=== PATIENT | female | born 1960 | race Caucasian/White ===

== ENCOUNTER 2020-07-25 10:29 | Inpatient (IN) | payer OTHER, SELFPAY ==
[2020-07-25] VITALS (21 sets, daily range): BP systolic 96–132; BP diastolic 51–80; PULSE 75–105; RESP 14–26; TEMP 36.9–38.7; O2SAT 90–100; BMI 27.1
--- NOTE | ~2020-07-25 | CT_ITS ---
EXAMINATION: CT abdomen pelvis wo con EXAM DATE: 07/25/2020 11:54 INDICATION: Right flank pain, elevated white blood cell count. TECHNIQUE: Spiral CT of the abdomen and pelvis was performed without contrast. Axial, coronal and sag ittal images were reviewed. The dose-length product (DLP) for this examination was 229.95 mGy-cm. T he exposure was tailored according to patient size (auto mA exposure control), and iterative reconstr uction (ASIR) was used as additional dose reduction technique. Comparison is made to prior examinatio n from 09/14/2005. FINDINGS: There is moderate amount of inflammation surrounding the right kidney, consistent with pyel onephritis. No hydronephrosis or nephrolithiasis. The uterus is not identified and has likely been s urgically resected. The bladder is unremarkable. The liver, spleen, adrenal glands and pancreas are unremarkable. Gallbladder is unremarkable. No biliary obstruction. There is no retroperitoneal or pelvic lymphadenopathy. The appendix is not positively visualized. There is no pericecal inflammatory change to suggest appe ndicitis. The stomach and small bowel are unremarkable. There is expected amount of colonic stool. No free intraperitoneal gas. The heart is normal in size. There are no pericardial or pleural e ffusions. The lung bases are unremarkable. There are no osteoblastic or osteolytic lesions identifi ed. IMPRESSION: 1. Moderate right perinephric fat stranding, probably pyelonephritis. Correlate with urinalysis. Reviewed, dictated and finalized at location B. ING MATCHER AND ASSEMBLER IMPRESSION: 1. Moderate right perinephric fat stranding, probably pyelonephritis. Correlat e with urinalysis.
--- NOTE | ~2020-07-25 | XR_ITS ---
EXAMINATION: XR chest 2V DATE: 07/25/2020 11:18 INDICATION: Fever. TECHNIQUE: Frontal and lateral views of the chest were obtained. COMPARISON: None. FINDINGS: There is mild scarring at the lung apices. No pneumonia, pleural effusion, or pneumothorax. The heart size is normal. Breast implants are noted. IMPRESSION: 1. Mild scarring at the lung apices. Reviewed, dictated and finalized at location A. F COUNSEL
--- NOTE | 2020-07-25 10:34 | ECG_ITS ---
Measurements Intervals [place] Rate: 101 P: 59 NC: 154 QRS: 77 QRSD: 77 T: 26 QT: 322 QTc: 419 Interpretive Statements SINUS TACHYCARDIA LEFT ATRIAL ENLARGEMENT BORDERLINE ECG Electronically Signed On 07-25-2020 11:26:57 ASTRO TECHNICIAN by Delvin Gould D.O.
--- NOTE | 2020-07-25 10:34 | ED.FEMALEGU ---
HPI - Female Genitourinary General Chief complaint: Fever Stated complaint: sent from urgent care- poss kidney infection Time Seen by Provider: 07/25/20 10:33 Source: patient and family Mode of arrival: ambulatory Limitations: no limitations History of Present Illness HPI Narrative: Patient is a 6-year-old female who presents for evaluation of dysuria, frequency, fever and headache. Patient states she has been feeling unwell over the past 48 hours, she initially had dysuria and frequency of urination which then resolved yesterday, but then patient developed fever and lower back pain. Patient denies any gross hematuria. She has had nausea without vomiting. She denies any frontal abdominal pain. She denies history of kidney stones. Patient denies chest pain, cough or shortness of breath. Patient was seen at an urgent care found to have an elevated white count and a urinary tract infection, referred to this facility for further work-up. Related Data Home Medications Medication Instructions Recorded Confirmed cetirizine 10 mg tablet 10 mg PO DAILY 01/08/20 01/08/20 Allergies Allergy/AdvReac Type Severity Reaction Status Date / Time No Known Allergies Allergy Mild Verified 07/25/20 10:39 Review of Systems Review of Systems: Narrative: CONSTITUTIONAL: Reports fever and chills EYES: Denies visual changes, redness, or discharge. ENT: Denies rhinorrhea, congestion, sore throat, or otalgia. CARDIOVASCULAR: Denies chest pain, palpitations, or edema. RESPIRATORY: Denies cough or dyspnea. GASTROINTESTINAL: Denies abdominal pain,nausea without vomiting GENITOURINARY: Reports dysuria and frequency SKIN: Denies rash or itching. MUSCULOSKELETAL: Denies back pain, joint pain, or myalgia. NEUROLOGIC: Reports mild headache without numbness or weakness, denies neck pain PMFSH Past Medical History Medical History (Updated 07/25/20 @ 15:50 by Marilynn Woods MD) Close exposure to COVID-19 virus Cough Surgical History Surgical History (Updated 07/25/20 @ 11:42 by Marilynn Woods MD) History of tonsillectomy Social History Social History Smoking status: Former smoker Second hand tobacco smoke exposure: No Smoking end date: 09/12/07 Alcohol intake: current Gender identity (if verbalized by the patient): Female Exam Narrative: Exam Narrative: GENERAL: Awake, alert, conversant HEAD: Normocephalic, atraumatic. EYES: PERRLA and EOMI. ENT: Nares clear, no rhinorrhea or epistaxis. Mucous membranes moist. NECK: Supple. CHEST: No respiratory distress, breathing even and non labored HEART: Tachycardic rate, sinus rhythm ABDOMEN:Non distended, non tender, mild right flank tenderness EXTREMITIES: Normal range of motion. No edema. SKIN: Warm, dry, no rash. NEURO:No focal deficits. Alert and oriented x3 Course Vital Signs Vital signs: Vital Signs Temperature 37.7 C H 07/25/20 10:34 Pulse Rate 105 H 07/25/20 10:34 Respiratory Rate 26 H 07/25/20 10:34 Blood Pressure 129/80 07/25/20 10:34 Pulse Oximetry 97 07/25/20 10:34 Temperature 37.7 C H 07/25/20 10:34 Pulse Rate 91 07/25/20 15:39 Respiratory Rate 17 07/25/20 15:39 Blood Pressure 110/73 07/25/20 15:39 Pulse Oximetry 98 07/25/20 15:39 MDM - Female Genitourinary MDM Narrative Medical decision making narrative: Patient presenting for evaluation of dysuria, hematuria, fever and tachycardia as referred from an urgent care. At the time of assessment, ABCs are intact and vital signs are stable. Patient is tachycardic and febrile. No hypotension. Laboratory results are consistent with sepsis, source of infection UTI, exam consistent with pyelonephritis and imaging confirms. Patient with acute kidney injury, elevated creatinine which did not improve much after a 30 mL/kg fluid bolus. Patient was given Rocephin in the emergency department. Patient then developed recurrent nausea
[2020-07-25 10:50] LABS: Basophils Absolute Auto 0.1 K/mm3 (0.0-0.1); Basophils Percent Auto 0.3 % (0.2-1.2); Hematocrit 41.3 % (37.0-47.0); Hemoglobin 14.1 g/dL (12.0-15.0); Immature Granulocyte Absolute 0.15 K/mm3 (0.00-0.031); Immature Granulocyte Percent A 0.7 % (0-0.5); Lymphocytes Absolute Auto 0.55 K/mm3 (0.9-3.2); Lymphocytes Percent Auto 2.6 % (18.3-44.2); Mean Corpuscular HGB Conc 34.1 g/dl (32-36); Mean Corpuscular Volume 87.9 fl (80-100); Monocytes Percent Auto 9.5 % (2.6-8.5); Neutrophils Percent Auto 86.9 % (45.5-73.1); Platelet Count Result 194 k/mm3 (150-375); Red Cell Distribution Width 13.2 % (11.5-14.5); White Blood Count 20.8 K/mm3 (4.5-10.0)
[2020-07-25 11:00] LABS: Prothrombin Time 14.1 Seconds (11.1-14.7)
[2020-07-25 11:01] LABS: Lactic Acid Reflex 1.3 mmol/L (0.7-2.1); Partial Thromboplastin Time 35.8 SECONDS (22.3-36.8)
[2020-07-25] MEDS: SODIUM CHLORIDE 0.9% IV 1,000 ML 999 ML IV CONT ×2 (11:10→14:00)
[2020-07-25 11:12] LABS: Alanine Aminotransferase 40 U/L (4-35); Albumin Level 4.2 g/dL (3.5-5.1); Alkaline Phosphatase 132 U/L (38-126); Anion Gap 12 mmol/L (8-16); Aspartate Amino Transferase 38 U/L (14-36); Bilirubin,Total 0.9 mg/dL (0.2-1.3); Blood Urea Nitrogen 18 mg/dL (7-17); Calcium 9.7 mg/dL (8.4-10.2); Carbon Dioxide 26 mmol/L (22-30); Chloride 95 mmol/L (98-107); Estimated Glomerular Filt Rate 35; Glucose 138 mg/dL (65-105); Potassium 4.2 mmol/L (3.4-5.0); Sodium 133 mmol/L (137-145)
[2020-07-25 11:25] LABS: Add Urine Microscopic? YES; Appearance Urine Cloudy (Clear); Bacteria Urine Trace /hpf; Bilirubin Urine Negative (Negative); Blood Urine 1+ (Negative); Color Urine Amber (Yellow); Glucose Urine UA Negative (Negative); Ketones Urine 1+ mg/dL (Negative); Leukocyte Esterase Ur Trace LEU/UL (Negative); Mucus Urine Few /lpf; Nitrate Urine Negative (Negative); Protein Urine 3+ mg/dL (Negative); Specific Grav Ur 1.023 (1.001-1.035); Squamous Epithelial Cell Urine Many /hpf (Few); Urobilinogen Urine Negative mg/dL (<2.0); WBC Clumps Urine Present /HPF; WBC Urine >75 /hpf
[2020-07-25 11:32] LABS: CRP > 45.0 mg/dL (<1.0)
[2020-07-25] MEDS: MORPHINE SULFATE (*CRX) 4 MG/ML INJ IV PUSH (12:01)
[2020-07-25] MEDS: ONDANSETRON INJ 4 MG/2 ML VIAL IV PUSH ×2 (12:02→21:25)
[2020-07-25 14:41] LABS: Anion Gap 5 mmol/L (8-16); Blood Urea Nitrogen 17 mg/dL (7-17); Calcium 8.4 mg/dL (8.4-10.2); Carbon Dioxide 29 mmol/L (22-30); Chloride 102 mmol/L (98-107); Estimated Glomerular Filt Rate 38; Glucose 119 mg/dL (65-105); Sodium 136 mmol/L (137-145)
--- NOTE | 2020-07-25 14:43 | PC.NURSE ---
PT BENT OVER TRASH CAN, NURSING ATTENDANT LIGHT, ASKING FOR NAUSEA MED, SPOKE WITH MICHAEL BUSCH VERBAL ORDER GIVEN FOR 4MG ZOFRAN IVP STAT.
[2020-07-25] MEDS: ONDANSETRON INJ 4 MG/2 ML VIAL (14:45)
[2020-07-25] MEDS: METOCLOPRAMIDE HCL INJ 10 MG/2 ML VIAL IV PUSH (16:11)
--- NOTE | 2020-07-25 17:46 | ADMGEN ---
This patient, Shirley Adams, was admitted to [facility] Surg Room 301-01. Patient/family oriented to hospital policies and general routines including ID bracelet, bed and alarms, visiting hours, pain management, procedures, bathroom and other care routines, personal items, smoking policy, room service/diet, and visiting hours. Information on how to activate the Rapid Response Team has been discussed. Patient/Family are encouraged to report perceived risks to care and to ask questions if they do not understand what they are told or what they should do.
[2020-07-25] MEDS: SODIUM CHLORIDE 0.9% IV 1,000 ML 125 ML IV CONT (18:11)
--- NOTE | 2020-07-25 19:00 | PM.IMHP ---
H&P: HPI History of Present Illness Date/Time: 07/25/20 17:00 Chief complaint: Right flank pain and fever. Narrative: Shirley Adams is a pleasant 60-year-old female sleep apnea, depression, anxiety presented to the emergency department earlier today from urgent care for evaluation of fever and right flank pain. She reports a gradual onset of generalized malaise on Tuesday while at work with reports of diffuse headache and fever up to 101.7?. 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 The following day she developed dull, right-sided flank pain, dysuria, urinary hesitancy and urgency, as well as malodorous urine. She has been taking acetaminophen for the pain and fever, but continues to feel poorly. She was seen at a local urgent care as her symptoms were not improving, she was directed to the emergency department where a CT of the abdomen and pelvis showed findings of right-sided pyelonephritis. Review of Systems Review of Systems: Narrative: Twelve systems were reviewed with pertinent positives and negatives as per HPI. No cold or flu symptoms. She has had a decrease in appetite as well as some nausea since the onset of symptoms on Tuesday. No hematuria. She denies diarrhea. No shortness of breath. Reports some mild dry cough. She is not always compliant with CPAP. Except as documented, all other systems were reviewed and are negative. [facility] Past Medical History Medical History (Updated 07/25/20 @ 23:22 by Moni Carmichael PA-C) Depression with anxiety Obstructive sleep apnea Surgical History Surgical History (Updated 07/25/20 @ 23:18 by Moni Carmichael PA-C) History of appendectomy History of breast augmentation History of hysterectomy History of left salpingo-oophorectomy History of tonsillectomy History of tubal ligation Family History Family History Sibling Diabetes mellitus Grandparent Diabetes mellitus Father Cerebrovascular accident Mother CAD (coronary artery disease) Hypertension Social History Social History (Updated 07/25/20 @ 23:19 by Moni Carmichael PA-C) Social History: Surrogate decision maker: Gómez Adams, spouse. Code status: Full code. Smoking status: Former smoker Second hand tobacco smoke exposure: No Smoking end date: 09/12/07 Alcohol intake: current Drinks per week: 3 Substance use: never Substance use type: does not use Additional living arrangements comments: Resides with spouse in [place]. Originally from [place] outside of [facility]. 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. Gender identity (if verbalized by the patient): Female Spiritual care concerns: No Meds Home Medications and Allergies Home Medications Medication Instructions Recorded Confirmed Type cetirizine 10 mg tablet 10 mg PO DAILY 01/08/20 07/25/20 History Adults Multivitamin 1 tablet PO DAILY 07/25/20 07/25/20 History Fish Oil 1 cap PO DAILY 07/25/20 07/25/20 History Glucosamine 1,000 mg PO DAILY 07/25/20 07/25/20 History bupropion HCl 360 mg PO DAILY 07/25/20 07/25/20 History Allergies Allergy/AdvReac Type Severity Reaction Status Date / Time No Known Allergies Allergy Mild Verified 07/25/20 18:00 Vital Signs Vital Signs - 24 hr 07/25/20 10:34 07/25/20 11:10 07/25/20 11:11 Temperature 99.8 F H Pulse Rate 105 H 96 97 Respiratory Rate 26 H 17 22 H Blood Pressure 129/80 112/73 112/73 Pulse Oximetry 97 97 96 07/25/20 11:19 07/25/20 11:31 07/25/20 12:02 Temperature Pulse Rate 96 87 84 Respiratory Rate 17 22 H 22 H Blood Pressure 110/75 114/74 110/71 Pulse Oximetry 97 95 98 07/25/20 12:56 07/25/20 13:16 07/25/20 13:31 Temperature Pulse Rate 79 78 77 Respiratory Rate 17 18 17 Blood Pressure 99/63 L 101/69 98/65 L Pulse Oximetry 97 97 97 07/25
[2020-07-26 00:16] LABS: Acetaminophen < 10 ug/mL (10-30)
[2020-07-26 00:22] LABS: Creatine Kinase 134 U/L (30-135)
[2020-07-26 00:30] VITALS: PULSE 83; RESP 20; TEMP 36.9; O2SAT 95
[2020-07-26 01:51] LABS: Hepatitis B Surface Antigen Negative (Negative)
[2020-07-26 01:57] LABS: HAV RESULT Negative (Negative); Hepatitis B Core IgM Result Negative (Negative)
[2020-07-26 02:09] LABS: Hepatitis C Virus Antibody Negative (Negative)
[2020-07-26] MEDS: ONDANSETRON INJ 4 MG/2 ML VIAL IV PUSH ×2 (04:07→19:13)
[2020-07-26] MEDS: SODIUM CHLORIDE 0.9% IV 1,000 ML 125 ML IV CONT ×3 (04:08→16:44)
[2020-07-26 05:58] LABS: INR 1.1; Prothrombin Time 14.8 Seconds (11.1-14.7)
[2020-07-26 06:00] VITALS: BP 124/59; PULSE 94; RESP 18; TEMP 37.4; O2SAT 93
[2020-07-26 06:07] LABS: Alanine Aminotransferase 39 U/L (4-35); Albumin Level 3.2 g/dL (3.5-5.1); Alkaline Phosphatase 139 U/L (38-126); Anion Gap 5 mmol/L (8-16); Aspartate Amino Transferase 45 U/L (14-36); Bilirubin Indirect 0.4 mg/dL (0-1.1); Bilirubin,Total 0.5 mg/dL (0.2-1.3); Blood Urea Nitrogen 15 mg/dL (7-17); Calcium 8.3 mg/dL (8.4-10.2); Carbon Dioxide 27 mmol/L (22-30); Chloride 104 mmol/L (98-107); Estimated CRCL calculation 40 ml/min; Estimated Glomerular Filt Rate 42; Glucose 115 mg/dL (65-105); Magnesium 2.2 mg/dL (1.6-2.3); Potassium 4.2 mmol/L (3.4-5.0); Sodium 136 mmol/L (137-145)
[2020-07-26] MEDS: buPROPion HCL XL (24 HR) 150 MG TABCR 300 MG PO (08:19)
[2020-07-26] MEDS: MULTIVITAMINS THERAPEUTIC TAB (*BKC) 1 TABLET PO (08:19)
[2020-07-26] MEDS: OMEGA 3 POLYUNSAT FATTY ACIDS 1 GM CAP PO (08:19)
[2020-07-26] MEDS: LORATADINE 10 MG TABLET PO (08:19)
[2020-07-26 14:00] VITALS: BP 116/61; PULSE 92; RESP 18; TEMP 37; O2SAT 94
[2020-07-26] MEDS: cefTRIAXone 1 GM in DEXTROSE 5% IN WATER 50 ML IVPB (15:00)
--- NOTE | 2020-07-26 15:41 | PM.IMPN ---
Progress Note: A&P Assessment and Plan (1) Pyelonephritis of right kidney: Code(s): N12 - Tubulo-interstitial nephritis, not specified as acute or chronic Status: Acute Assessment and Plan: -----noted on imaging and supported by urine culture and patient's symptoms. Will continue ceftriaxone but will ajust to 2 g and await for sensitivities. At this time, her vitals have improved and I do not think we need to broaden antibiotics at this time. Will monitor CBC daily. Back pain has resolved. (2) Bacteremia: Code(s): R78.81 - Bacteremia Status: Acute Assessment and Plan: -----gram-negative bacilli growing in her blood culture with positive urine culture of E coli. Likely secondary to above. Ceftriaxone adjusted to 2 g. (3) Sepsis: Code(s): A41.9 - Sepsis, unspecified organism Status: Acute Assessment and Plan: -----secondary to above and supported by temperature and leukocytosis. Continue antibiotics. (4) Acute kidney injury: Code(s): N17.9 - Acute kidney failure, unspecified Status: Acute Assessment and Plan: -----improving, secondary to above. (5) Acute dehydration: Code(s): E86.0 - Dehydration Status: Acute Assessment and Plan: -----continue IV fluids (6) Elevated LFTs: Code(s): R79.89 - Other specified abnormal findings of blood chemistry Status: Acute Assessment and Plan: -----likely due to bacteremia, will monitor. Suspect they will improve with treatment of infection (7) Obstructive sleep apnea: Code(s): G47.33 - Obstructive sleep apnea (adult) (pediatric) Status: Acute (8) Depression with anxiety: Code(s): F41.8 - Other specified anxiety disorders Status: Inactive Time Spent With Patient Time with patient: 25 - 35 minutes Subjective Date/time seen: 07/26/20 15:41 Interval history: Pt is a 60-year-old female here for pyelonephritis with bacteremia. Patient was seen today and is not doing well. Although her back pain has improved, she has a headache. She says that Tylenol does not help at this time. She has also been running fevers up to 102 according to the nurse. She denies chest pain, shortness of breath, fevers, chills, abdominal pain, nausea, vomiting, or leg swelling. She has a cough when she takes deep breaths Review of Systems Review of Systems: All systems reviewed & are unremarkable except as noted in HPI and below Exam Narrative: Exam Narrative: General: Well developed well nourished patient in NAD HEENT: normocephalic Neck: supple Neuro: Alert and oriented x4 CV:RRR Resp: Decreased breath sounds and audible cough with deep breaths. Abd: Soft, non distended. No pain to palpation. Positive bowel sounds Extremities: No swelling, erythema, or pain to palpation. Objective Data Vital Signs Vital Signs: Vital Signs - 24 hr 07/25/20 16:46 07/25/20 17:16 07/25/20 18:43 Temperature 98.4 F Pulse Rate 97 99 105 H Respiratory Rate 21 H 17 18 Blood Pressure 115/70 108/70 132/56 L Pulse Oximetry 95 100 07/25/20 20:00 07/25/20 22:00 07/25/20 23:26 Temperature 101.6 F H 98.5 F Pulse Rate 100 100 Respiratory Rate 20 20 Blood Pressure 109/51 L Pulse Oximetry 90 90 07/26/20 00:30 07/26/20 06:00 07/26/20 14:00 Temperature 98.5 F 99.4 F 98.6 F Pulse Rate 83 94 92 Respiratory Rate 20 18 18 Blood Pressure 124/59 L 116/61 Pulse Oximetry 95 93 94 Intake/Output Intake/Output: Intake & Output 07/23/20 07/24/20 07/25/20 07/26/20 23:59 23:59 23:59 23:59 Intake Total 2400 3210 Output Total 1700 Balance 2400 1510 Meds/Results Medications: Active Medications Generic Name Dose Route Start Last Admin Trade Name Freq PRN Reason Stop Dose Admin Bupropion HCl 300 mg 07/26/20 09:00 07/26/20 08:19 Bupropion Hcl Xl (24 Hr) 150 Mg Tabcr PO 300 mg DAILY PRIYANKA Administratio
[2020-07-26 18:27] VITALS: PULSE 90; RESP 18; O2SAT 94
--- NOTE | 2020-07-26 20:45 | PC.NURSE ---
Currently sleeping. No distress noted.
[2020-07-26 22:00] VITALS: BP 111/66; PULSE 89; RESP 20; TEMP 36.7; O2SAT 94
[2020-07-26] MEDS: IBUPROFEN 400 MG TABLET PO (22:19)
[2020-07-27 06:00] VITALS: BP 125/73; PULSE 91; RESP 20; TEMP 36.9; O2SAT 94
[2020-07-27 06:40] LABS: Basophils Percent Auto 0.3 % (0.2-1.2); Eosinophils Absolute Auto 0.1 K/mm3 (0-0.3); Eosinophils Percent Auto 0.9 % (0-4.4); Hematocrit 34.3 % (37.0-47.0); Immature Granulocyte Absolute 0.06 K/mm3 (0.00-0.031); Immature Granulocyte Percent A 0.6 % (0-0.5); Lymphocytes Absolute Auto 0.72 K/mm3 (0.9-3.2); Lymphocytes Percent Auto 7.4 % (18.3-44.2); Mean Corpuscular HGB Conc 32.1 g/dl (32-36); Mean Corpuscular Hemoglobin 29.1 pg (26-34); Mean Corpuscular Volume 90.7 fl (80-100); Mean Platelet Volume 10.5 fl (7.4-10.4); Monocytes Absolute Auto 1.2 K/mm3 (0.1-0.6); Monocytes Percent Auto 12.2 % (2.6-8.5); Neutrophils Absolute Auto 7.6 K/mm3 (1.3-6.7); Neutrophils Percent Auto 78.6 % (45.5-73.1); Platelet Count Result 205 k/mm3 (150-375); Red Blood Count 3.78 M/mm3 (4.2-5.4); Red Cell Distribution Width 13.5 % (11.5-14.5); White Blood Count 9.7 K/mm3 (4.5-10.0)
[2020-07-27 07:13] LABS: Alanine Aminotransferase 63 U/L (4-35); Albumin Level 3.2 g/dL (3.5-5.1); Alkaline Phosphatase 169 U/L (38-126); Anion Gap 6 mmol/L (8-16); Aspartate Amino Transferase 75 U/L (14-36); Bilirubin,Total 0.2 mg/dL (0.2-1.3); Blood Urea Nitrogen 9 mg/dL (7-17); Calcium 8.4 mg/dL (8.4-10.2); Carbon Dioxide 28 mmol/L (22-30); Chloride 107 mmol/L (98-107); Estimated CRCL calculation 49 ml/min; Estimated Glomerular Filt Rate 46; Glucose 105 mg/dL (65-105); Magnesium 2.3 mg/dL (1.6-2.3); Potassium 3.3 mmol/L (3.4-5.0); Sodium 141 mmol/L (137-145)
[2020-07-27] MEDS: buPROPion HCL XL (24 HR) 150 MG TABCR 300 MG PO (08:58)
[2020-07-27] MEDS: MULTIVITAMINS THERAPEUTIC TAB (*BKC) 1 TABLET PO (08:58)
[2020-07-27] MEDS: LORATADINE 10 MG TABLET PO (08:58)
[2020-07-27] MEDS: OMEGA 3 POLYUNSAT FATTY ACIDS 1 GM CAP PO (08:58)
[2020-07-27] MEDS: IBUPROFEN 400 MG TABLET PO (09:01)
[2020-07-27] MEDS: SODIUM CHLORIDE 0.9% IV 1,000 ML 125 ML IV CONT (11:04)
[2020-07-27] MEDS: POTASSIUM CHLORIDE 20 MEQ TABLET 40 MEQ PO (11:51)
--- NOTE | 2020-07-27 13:55 | PM.IMPN ---
Progress Note: A&P Assessment and Plan (1) Pyelonephritis of right kidney: Code(s): N12 - Tubulo-interstitial nephritis, not specified as acute or chronic <Rochelle Perry FOX Rust - Last Filed: 07/27/20 14:00> Status: Acute <Rochelle BricenoELISE riggsC - Last Filed: 07/27/20 14:00> Assessment and Plan: -----noted on imaging and supported by urine culture and patient's symptoms. Will continue ceftriaxone at 2 g and await for sensitivities. At this time, her vitals have improved and I do not think we need to broaden antibiotics. WBC has resolved. Back pain better <Rochelle NevilleYaa Rust PA-C - Last Filed: 07/27/20 14:00> (2) Bacteremia: Code(s): R78.81 - Bacteremia <Rochelle BricenoELISE riggsC - Last Filed: 07/27/20 14:00> Status: Acute <Rochelle Perry ELISE RustC - Last Filed: 07/27/20 14:00> Assessment and Plan: -----gram-negative bacilli growing in her blood culture with positive urine culture of E coli. Likely secondary to above. Ceftriaxone 2 g. <Rochelle BricenoELISE riggsC - Last Filed: 07/27/20 14:00> (3) Sepsis: Code(s): A41.9 - Sepsis, unspecified organism <Rochelle Vciky ELISE RustC - Last Filed: 07/27/20 14:00> Status: Acute <Rochelle BricenoEILSE riggsC - Last Filed: 07/27/20 14:00> Assessment and Plan: -----secondary to above and supported by temperature and leukocytosis. Continue antibiotics. <Rochelle Perry ELISE RustC - Last Filed: 07/27/20 14:00> (4) Acute kidney injury: Code(s): N17.9 - Acute kidney failure, unspecified <Rochelle LozadaELISE SullivanC - Last Filed: 07/27/20 14:00> Status: Acute <Rochelle Perry ELISE RustC - Last Filed: 07/27/20 14:00> Assessment and Plan: -----improving, secondary to above. <Rochelle BricenoELISE riggsC - Last Filed: 07/27/20 14:00> (5) Acute dehydration: Code(s): E86.0 - Dehydration <Rochelle Rust PA-C - Last Filed: 07/27/20 14:00> Status: Acute <Rochelle RustYADIRA-C - Last Filed: 07/27/20 14:00> Assessment and Plan: -----Resolved. IV fluids stopped, pt is drinking. <Rochelle BricenoYADIRA riggs-C - Last Filed: 07/27/20 14:00> (6) Elevated LFTs: Code(s): R79.89 - Other specified abnormal findings of blood chemistry <Rochelle RustYADIRA-C - Last Filed: 07/27/20 14:00> Status: Acute <Rochelle RustELISEC - Last Filed: 07/27/20 14:00> Assessment and Plan: -----likely due to bacteremia, will monitor. Suspect they will improve with treatment of infection <Rochelle BricenoYADIRA riggs-C - Last Filed: 07/27/20 14:00> (7) Obstructive sleep apnea: Code(s): G47.33 - Obstructive sleep apnea (adult) (pediatric) <Rochelle BricenoELISE riggsC - Last Filed: 07/27/20 14:00> Status: Acute <Rochelle BricenoELISE riggsC - Last Filed: 07/27/20 14:00> Assessment and Plan: -----She did wear her cpap overnight and her may bring her cpcp in from home because she doesn't like our masks <Rochelle BricenoELISE riggsC - Last Filed: 07/27/20 14:00> (8) Depression with anxiety: Code(s): F41.8 - Other specified anxiety disorders <Rochelle Bricenokeely PA-C - Last Filed: 07/27/20 14:00> Status: Inactive <Rochelle Perry ELISE RustC - Last Filed: 07/27/20 14:00> Assessment and Plan: -----stable <Rochelle Rust PA-C - Last Filed: 07/27/20 14:00> Subjective Date/time seen: 07/27/20 13:55 <Rochelle Rust PA-C - Last Filed: 07/27/20 14:00> Interval history: Pt is a 60-year-old female here for pyelonephritis with bacteremia. Patient was seen today and is doing better today than yesterday. She says her headache is still there but improved. She is able to eat more today and is drinking water. She has occasional pain in her flank with certain movements but that has improved as well. Pt denies nausea, vomiting, fevers, chills, const
[2020-07-27 14:00] VITALS: BP 124/76; PULSE 81; RESP 20; TEMP 36.4; O2SAT 98
[2020-07-27] MEDS: PANTOPRAZOLE 40 MG TABLET PO (17:45)
[2020-07-27] MEDS: IBUPROFEN 600 MG TABLET PO (17:48)
[2020-07-27 20:00] VITALS: O2SAT 93
[2020-07-27] MEDS: ACETAMINOPHEN 325 MG TABLET 650 MG PO (20:44)
[2020-07-27 22:00] VITALS: BP 115/58; PULSE 88; RESP 18; TEMP 36.9; O2SAT 93
[2020-07-28 05:37] VITALS: BP 106/61; PULSE 72; RESP 18; TEMP 36.6; O2SAT 94
[2020-07-28 06:51] LABS: Basophils Percent Auto 0.4 % (0.2-1.2); Eosinophils Absolute Auto 0.1 K/mm3 (0-0.3); Eosinophils Percent Auto 1.7 % (0-4.4); Hematocrit 32.2 % (37.0-47.0); Hemoglobin 10.4 g/dL (12.0-15.0); Immature Granulocyte Absolute 0.11 K/mm3 (0.00-0.031); Immature Granulocyte Percent A 1.3 % (0-0.5); Lymphocytes Absolute Auto 1.04 K/mm3 (0.9-3.2); Lymphocytes Percent Auto 12.6 % (18.3-44.2); Mean Corpuscular HGB Conc 32.3 g/dl (32-36); Mean Corpuscular Hemoglobin 28.7 pg (26-34); Mean Corpuscular Volume 88.7 fl (80-100); Mean Platelet Volume 10.1 fl (7.4-10.4); Monocytes Absolute Auto 1.1 K/mm3 (0.1-0.6); Monocytes Percent Auto 13.1 % (2.6-8.5); Neutrophils Absolute Auto 5.9 K/mm3 (1.3-6.7); Neutrophils Percent Auto 70.9 % (45.5-73.1); Platelet Count Result 250 k/mm3 (150-375); Red Blood Count 3.63 M/mm3 (4.2-5.4); Red Cell Distribution Width 13.5 % (11.5-14.5); White Blood Count 8.3 K/mm3 (4.5-10.0)
[2020-07-28 07:08] LABS: Alanine Aminotransferase 74 U/L (4-35); Albumin Level 2.9 g/dL (3.5-5.1); Alkaline Phosphatase 148 U/L (38-126); Anion Gap 6 mmol/L (8-16); Aspartate Amino Transferase 62 U/L (14-36); Bilirubin,Total 0.2 mg/dL (0.2-1.3); Blood Urea Nitrogen 6 mg/dL (7-17); Calcium 8.5 mg/dL (8.4-10.2); Carbon Dioxide 28 mmol/L (22-30); Chloride 107 mmol/L (98-107); Estimated CRCL calculation 56 ml/min; Estimated Glomerular Filt Rate 51; Glucose 104 mg/dL (65-105); Potassium 3.9 mmol/L (3.4-5.0); Sodium 141 mmol/L (137-145)
[2020-07-28] MEDS: IBUPROFEN 600 MG TABLET PO (07:42)
[2020-07-28] MEDS: buPROPion HCL XL (24 HR) 150 MG TABCR 300 MG PO (09:00)
[2020-07-28] MEDS: OMEGA 3 POLYUNSAT FATTY ACIDS 1 GM CAP PO (09:08)
[2020-07-28] MEDS: PANTOPRAZOLE 40 MG TABLET PO (09:09)
[2020-07-28] MEDS: LORATADINE 10 MG TABLET PO (09:09)
[2020-07-28] MEDS: MULTIVITAMINS THERAPEUTIC TAB (*BKC) 1 TABLET PO (09:09)
--- NOTE | 2020-07-28 10:59 | PM.DS ---
DS: Admitting Diagnosis Admitting Diagnosis Admitting Diagnosis: Right flank pain and fever. DS: Discharge Diagnosis Discharge Diagnosis (1) Pyelonephritis of right kidney: Code(s): N12 - Tubulo-interstitial nephritis, not specified as acute or chronic Status: Acute Assessment and Plan: -----noted on imaging and supported by urine culture and patient's symptoms. patient received 2 g of ceftriaxone x3 days while hospitalized. Symptoms and leukocytosis have improved. Continue oral antibiotic therapy outpatient follow-up with primary care physician (2) Bacteremia: Code(s): R78.81 - Bacteremia Status: Acute Assessment and Plan: ----- E coli growing and both blood cultures. See treatment plan above (3) Sepsis: Code(s): A41.9 - Sepsis, unspecified organism Status: Acute Assessment and Plan: ----- resolved.secondary to above and supported by temperature and leukocytosis. Continue antibiotics. (4) Acute kidney injury: Code(s): N17.9 - Acute kidney failure, unspecified Status: Acute Assessment and Plan: ----- Resolved. secondary to above. (5) Acute dehydration: Code(s): E86.0 - Dehydration Status: Acute Assessment and Plan: -----Resolved. (6) Elevated LFTs: Code(s): R79.89 - Other specified abnormal findings of blood chemistry Status: Acute Assessment and Plan: -----likely due to bacteremia, Will redraw outpatient after completion of therapy and follow-up with primary (7) Obstructive sleep apnea: Code(s): G47.33 - Obstructive sleep apnea (adult) (pediatric) Status: Acute Assessment and Plan: ----- continue CPAP at home (8) Depression with anxiety: Code(s): F41.8 - Other specified anxiety disorders Status: Inactive Assessment and Plan: -----stable DS: Summary Hospital Course Reason for hospitalization: UTI bacteremia Hospital Course: patient is a 60-year-old female who presented emergency room for flank pain, dysuria and headache. Vitals in the ER were temperature 37.7? C, pulse 105, respiratory rate 26, blood pressure 129/80, pulse ox 97 on room air. Initial white blood cell count 20.8, hemoglobin 14.1, hematocrit 41.3, glucose 194. Creatinine a little elevated 1.4. Abdominal CT showed moderate right perinephric fat stranding probably pyelonephritis. UA suspicious for UTI and was sent for culture. Patient was admitted to the hospitalist service and started on ceftriaxone IV. She continued to improve with this treatment. Urine cultures and blood cultures were positive for E coli. She received 3 days worth of 2 g of ceftriaxone and is being transition to cefdinir. Her LFTs were mildly elevated during the stay and likely due to infection. Hepatitis screen was negative. Liver appears to be normal on CT. She is going to follow-up with her primary care physician to get these redrawn in 2 weeks once treatment has been completed. Overall, the patient is back to baseline. She was educated about the worrisome signs and symptoms come back to emergency room for was discharged stable condition. Status at Discharge Functional status at discharge: independent ambulation Overall status at discharge: patient is back to baseline Time Spent with Patient Time attestation: Total time spent providing and/or coordinating discharge services: 32 min Time spent: Greater than 30 minutes Exam Narrative: Exam Narrative: General: Well developed well nourished patient in NAD HEENT: normocephalic Neck: supple Neuro: Alert and oriented x4 CV:RRR Resp: CTA Abd: Soft, non distended. No pain to palpation. Positive bowel sounds Extremities: No swelling, erythema, or pain to palpation. DS: Data Data Completed and Pending Labs on day of discharge: Labs from last 24 hours 07/28/20 07/28/20 06:23 06:23 WBC 8.3 RBC 3.6
== END 2020-07-28 14:22 | disposition home or self-care (01) | DRG 872 ==
LOC: ANHED 15:50 → ANH3MEDSUR 16:48
PROVIDERS: Physician Assistant; Admitting Provider Internal Medicine; Emergency Provider Emergency Medicine; PCP Family Medicine; Visit Provider Student in an Organized Health Care Education/Training Program
DX: A41.9 Sepsis, unspecified organism (principal); N12 Tubulo-interstitial nephritis, not specified as acute or chronic; N17.9 Acute kidney failure, unspecified; E86.0 Dehydration; G47.33 Obstructive sleep apnea (adult) (pediatric); F41.8 Other specified anxiety disorders; B96.20 Unspecified Escherichia coli [E. coli] as the cause of diseases classified elsewhere
CPT/HCPCS: 36415; 71046; 74176; 80048; 80053; 80074; 80076; 80307; 81001; 82248; 82550; 83605; 83735; 85025; 85610; 85730; 86140; 87040; 87077; 87086; 87088; 87186; 93005; 96361; 96365; 96366; 96367; 96375; 96376; 99285; A9270; G0378; J0131; J0696; J2270; J2405; J2765; J7030

== ENCOUNTER 2020-08-04 11:51 | Outpatient (CLI) | payer OTHER, SELFPAY ==
[2020-08-04 12:28] LABS: Basophils Absolute Auto 0.1 K/mm3 (0.0-0.1); Basophils Percent Auto 0.8 % (0.2-1.2); Eosinophils Absolute Auto 0.2 K/mm3 (0-0.3); Eosinophils Percent Auto 1.9 % (0-4.4); Hematocrit 41.5 % (37.0-47.0); Hemoglobin 13.3 g/dL (12.0-15.0); Immature Granulocyte Absolute 0.31 K/mm3 (0.00-0.031); Lymphocytes Absolute Auto 1.77 K/mm3 (0.9-3.2); Lymphocytes Percent Auto 17.1 % (18.3-44.2); Mean Corpuscular Hemoglobin 28.7 pg (26-34); Mean Corpuscular Volume 89.4 fl (80-100); Mean Platelet Volume 8.6 fl (7.4-10.4); Monocytes Absolute Auto 0.7 K/mm3 (0.1-0.6); Monocytes Percent Auto 7.1 % (2.6-8.5); Neutrophils Absolute Auto 7.3 K/mm3 (1.3-6.7); Neutrophils Percent Auto 70.1 % (45.5-73.1); Platelet Count Result 488 k/mm3 (150-375); Red Blood Count 4.64 M/mm3 (4.2-5.4); Red Cell Distribution Width 13.5 % (11.5-14.5); White Blood Count 10.4 K/mm3 (4.5-10.0)
[2020-08-04 12:34] LABS: Add Urine Microscopic? YES; Appearance Urine Clear (Clear); Bacteria Urine Trace /hpf; Bilirubin Urine Negative (Negative); Blood Urine Negative (Negative); Color Urine Yellow (Yellow); Glucose Urine UA Negative (Negative); Ketones Urine Negative (Negative); Leukocyte Esterase Ur 2+ LEU/UL (Negative); Mucus Urine Rare /lpf; Nitrate Urine Negative (Negative); Protein Urine 1+ mg/dL (Negative); Specific Grav Ur 1.013 (1.001-1.035); Squamous Epithelial Cell Urine Many /hpf (Few); Urobilinogen Urine Negative mg/dL (<2.0); WBC Urine 31-50 /hpf
[2020-08-04 12:42] LABS: Alanine Aminotransferase 86 U/L (4-35); Albumin Level 4.3 g/dL (3.5-5.1); Alkaline Phosphatase 110 U/L (38-126); Anion Gap 8 mmol/L (8-16); Aspartate Amino Transferase 52 U/L (14-36); Bilirubin,Total 0.5 mg/dL (0.2-1.3); Blood Urea Nitrogen 20 mg/dL (7-17); Calcium 10.2 mg/dL (8.4-10.2); Carbon Dioxide 33 mmol/L (22-30); Chloride 99 mmol/L (98-107); Estimated Glomerular Filt Rate 46; Glucose 104 mg/dL (65-105); Potassium 4.2 mmol/L (3.4-5.0); Sodium 140 mmol/L (137-145)
== END 2020-08-04 11:52 | disposition home or self-care (01) ==
LOC: ANHLAB 11:52
PROVIDERS: PCP Family Medicine; Visit Provider Nurse Practitioner Family
DX: N12 Tubulo-interstitial nephritis, not specified as acute or chronic (principal); R79.89 Other specified abnormal findings of blood chemistry; R78.81 Bacteremia
CPT/HCPCS: 36415; 80053; 81001; 85025; 87086

== ENCOUNTER 2020-08-08 12:29 | Outpatient (CLI) | payer OTHER, SELFPAY ==
[2020-08-08 12:49] LABS: Basophils Absolute Auto 0.1 K/mm3 (0.0-0.1); Eosinophils Absolute Auto 0.1 K/mm3 (0-0.3); Eosinophils Percent Auto 1.2 % (0-4.4); Hemoglobin 13.5 g/dL (12.0-15.0); Immature Granulocyte Absolute 0.04 K/mm3 (0.00-0.031); Immature Granulocyte Percent A 0.5 % (0-0.5); Lymphocytes Percent Auto 20.8 % (18.3-44.2); Mean Corpuscular HGB Conc 32.1 g/dl (32-36); Mean Corpuscular Hemoglobin 28.5 pg (26-34); Mean Corpuscular Volume 88.8 fl (80-100); Mean Platelet Volume 9.2 fl (7.4-10.4); Monocytes Absolute Auto 0.5 K/mm3 (0.1-0.6); Monocytes Percent Auto 6.1 % (2.6-8.5); Neutrophils Absolute Auto 5.4 K/mm3 (1.3-6.7); Neutrophils Percent Auto 70.4 % (45.5-73.1); Platelet Count Result 409 k/mm3 (150-375); Red Blood Count 4.73 M/mm3 (4.2-5.4); Red Cell Distribution Width 13.3 % (11.5-14.5); White Blood Count 7.7 K/mm3 (4.5-10.0)
[2020-08-08 13:05] LABS: Alanine Aminotransferase 39 U/L (4-35); Albumin Level 4.5 g/dL (3.5-5.1); Alkaline Phosphatase 112 U/L (38-126); Aspartate Amino Transferase 32 U/L (14-36); Bilirubin,Total 0.6 mg/dL (0.2-1.3)
== END 2020-08-08 12:30 | disposition home or self-care (01) ==
PROVIDERS: PCP Family Medicine; Visit Provider Nurse Practitioner Family
DX: N12 Tubulo-interstitial nephritis, not specified as acute or chronic (principal); R79.89 Other specified abnormal findings of blood chemistry
CPT/HCPCS: 36415; 80076; 85025

== ENCOUNTER → 2020-11-03 00:25 | Outpatient (CLI) | payer OTHER, SELFPAY ==
[2020-11-03 19:33] LABS: SARS-CoV-2 RNA PCR Negative
== END ==
PROVIDERS: PCP Family Medicine; Visit Provider Internal Medicine Critical Care Medicine
DX: Z01.812 Encounter for preprocedural laboratory examination (principal); Z20.822 Contact with and (suspected) exposure to COVID-19
CPT/HCPCS: C9803; U0003; U0005

== ENCOUNTER 2020-11-05 14:01 | Outpatient (CLI) | payer OTHER, SELFPAY ==
--- NOTE | 2020-11-19 09:56 | WPDSLEEPSTUD ---
Sleep Study Date of Study: 11/05/20 Ordering Provider: Belgica Olmedo NP Interpreting Physician: Ruthy Mitchell MD Sleep Study Type: CPAP Titration Height: 1.68 m Weight: 78.018 kg Body Mass Index: 27.7 Neck Circumference (inches): 13 [place]: 4 Reason for Sleep Study RONNELL on 13 cm which feels like too much pressure Prior split night study 04/06/2017 BMI 23.5, severe RONNELL with AHI 35.1, desaturation to 67%, CPAP 15% with REM rebound Sleep History Shirley Adams is a 60 year old female with RONNELL on CPAP 13 cm which she says is too much pressure. She occasionally snores, rarely loud enough that others complain about it. She occasionally awakens at night with heartburn, belching or coughing. She does not awaken from sleep feeling short of breath. She occasionally has trouble sleep with a cold. She does not gasp for breath at night. She frequently has breathing problems at night observed by others. She does not sweat excessively at night or notice palpitations at night. She does not fall asleep during the day, does not fall asleep involuntarily or while driving. She does not have loss of muscle tone was strong emotion. She rarely has daytime difficulties due to excessive sleepiness. She does not feel paralyzed on waking or falling asleep and does not have vivid dreamlike scenes upon awakening or falling asleep. She rarely has nightmares. She rarely remembers her dreams. She frequently has racing thoughts. She rarely feels sad or depressed. She occasionally has anxiety. She occasionally has muscular tension and occasionally notices parts of her body jerking. On occasion she kicks at night. She occasionally has crawling and aching feelings in her legs. She occasionally has leg pain at night. She does not have morning jaw pain. She rarely grinds her teeth at night. She occasionally has bothered by pain during the day as well as wakes with pain at night. She occasionally wakes up feeling stiff in the morning with sore or achy muscles and pain in the neck and spine. She does not take naps in the afternoon or evening. A short nap is not refreshing. she occasionally awakens feeling refreshed. She rarely has a morning headache. During the last year she records an 8 lb weight gain. Normal bedtime is 11:00 p.m. taking 30-40 minutes to fall asleep, typically waking 1-2 times at night to urinate, get a drink of water, with return to sleep within 10-15 minutes. She wakes the morning at 6:20 a.m.. On the weekends she stays awake later, midnight or 1:00 a.m. and wakes at 9 in the morning. She estimates getting 7 hours of sleep at night. Habits: Quit tobacco 12 years ago. Caffeine 2 cups in the morning. Alcohol on occasion. No recreational drugs. [facility], [facility] Past Medical History Medical History (Updated 11/19/20 @ 10:30 by Ruthy Mitchell MD) Depression with anxiety GERD without esophagitis Obstructive sleep apnea Pyelonephritis of right kidney (~07/2020) Surgical History Surgical History History of appendectomy History of breast augmentation History of elbow surgery History of hysterectomy History of left salpingo-oophorectomy History of tonsillectomy History of tubal ligation Family History Family History Sibling Diabetes mellitus Grandparent Diabetes mellitus Father Cerebrovascular accident Mother CAD (coronary artery disease) Hypertension Social History Social History Social History: Surrogate decision maker: Gómez Bryan, spouse. Code status: Full code. Smoking status: Former smoker Second hand tobacco smoke exposure: No Smoking end date: 09/12/07 Alcohol intake: current Drinks per week: 3 Substance use: never Substance use type: does not use Additional living arrangements comments: Resides with spouse in [place]. [facility]
[2020-11-19 09:57] VITALS: BMI 27.7
== END 2020-11-05 14:02 ==
LOC: ANHCSM 11-24 14:02
PROVIDERS: PCP Family Medicine; Visit Provider Nurse Practitioner Family
DX: G47.33 Obstructive sleep apnea (adult) (pediatric) (principal)
CPT/HCPCS: 95811

== ENCOUNTER → 2021-02-18 09:31 | Outpatient (CLI) | payer OTHER, SELFPAY ==
--- NOTE | ~2021-02-18 | XR_ITS ---
XR lumbar spine 2-3V 02/18/2021 10:10 Indication: Cephalgia Procedure: 3 views lumbar spine Comparison: 05/18/2019 Findings: There is levoscoliosis centered at L3. There is disc narrowing at L2-3 through L5-S1. There is mild lower lumbar facet hypertrophy. Sacral foramen are symmetric. Pedicles intact. No fracture o r traumatic malalignment. Impression: 1: Moderate lumbar spondylosis with levoscoliosis. Reviewed, dictated and finalized at location B. Impression: 1: Moderate lumbar spondylosis with levoscoliosis.
== END ==
PROVIDERS: PCP Family Medicine; Visit Provider Family Medicine
DX: M54.9 Dorsalgia, unspecified (principal); M47.816 Spondylosis without myelopathy or radiculopathy, lumbar region; M41.86 Other forms of scoliosis, lumbar region
CPT/HCPCS: 72100